=== PATIENT | male | born 1985 | race Two or more races ===

== ENCOUNTER → 2017-10-18 | Emergency (ER) | payer OTHER ==
[~2017-10-18] VITALS: Ht 172.7 cm; Wt 95.3 kg
[~2017-10-18] MED LIST: BENADRYL25 MG PO; BETAMETHASONE D15 G2 TOP
== END | disposition home or self-care (01) ==
LOC: ER 20:25
DX: L23.9 Allergic contact dermatitis, unspecified cause (principal)